=== PATIENT | female | born 1940 | race Caucasian/White ===

== ENCOUNTER → 2017-09-18 | Outpatient (CLI) | payer OTHER | END | disposition home or self-care (01) | LOC: RAH 08:10 | PROVIDERS: ATTEND Family Medicine | DX: Z12.31 Encounter for screening mammogram for malignant neoplasm of breast (principal) | CPT/HCPCS: 77067 ==

== ENCOUNTER → 2018-10-04 | Outpatient (CLI) | payer OTHER | END | disposition home or self-care (01) | LOC: RAH 14:08 | PROVIDERS: ATTEND Family Medicine | DX: Z12.31 Encounter for screening mammogram for malignant neoplasm of breast (principal) | CPT/HCPCS: 77067 ==

== ENCOUNTER 2020-02-17 11:07 | Inpatient (IN) | payer OTHER ==
[~2020-02-17] VITALS: Ht 157.5 cm; Wt 50.3 kg
[2020-02-17] MEDS ORDERED: SODIUM CHLORIDE 0.9% 1000ML 1,000 ML IV ONE (18:48)
[2020-02-17] MEDS ORDERED: ACETAMINOPHEN 325 MG TAB PO PRN (19:15)
[2020-02-17] MEDS ORDERED: HYDRALAZINE HCL 20 MG/ML VIAL IV PRN ×2 (19:15)
[2020-02-17 20:00] VITALS: BP 160/81; PULSE 91; RESP 20; TEMP 98.5
[2020-02-17] MEDS: SODIUM CHLORIDE 0.9% 1000ML 1,000 ML IV SCH (20:14)
--- NOTE | 2020-02-17 20:52 | NUR ---
CRITICAL TROPONIN RECEIVED CALL FROM LAB REGARDING TROPONIN OF 1.90, PLACED CALL TO ROSA HORVATH. PENDING CALL BACK. PATIENT CURRENTLY DENIES HAVING ANY CHEST PAIN OR DISCOMFORT.
[2020-02-17] MEDS ORDERED: METOPROLOL TARTRATE 25 MG TAB PO STA (20:59)
[2020-02-17] MEDS ORDERED: ASPIRIN 325MG EC TAB 325 MG TABLET.DR PO STA (20:59)
[2020-02-17] MEDS ORDERED: ASPIRIN 325 MG TABLET ONE (21:12)
[2020-02-17] MEDS ORDERED: METOPROLOL TARTRATE 25 MG TAB ONE (21:12)
[2020-02-17] MEDS: ENOXAPARIN SODIUM 60 MG/0.6 ML SQ SCH (21:16)
[2020-02-18] VITALS (7 sets, daily range): BP systolic 118–137; BP diastolic 63–79; PULSE 78–103; RESP 16–20; TEMP 97.7–98.7
--- NOTE | 2020-02-18 03:46 | NUR ---
ELEVATED TROPONIN RECEIVED CALL FROM LAB REGARDING TROPONIN OF 2.23, PLACED CALL TO ROSA HORVATH. PENDING CALL BACK. PATIENT CURRENTLY DENIES HAVING ANY CHEST PAIN OR DISCOMFORT.
--- NOTE | 2020-02-18 07:32 | NUR ---
Spouse called department, provided update on treatment plan for aspirin, metoprolol and anticoagulant, pending recommendation from Cardiology consult and Echocardiogram. Requested spouse to gather home medications and cell phone for patient. Spouse to deliver to Emergency department.
--- NOTE | 2020-02-18 08:10 | NUR ---
Notified Dr. Guallpa of consult for elevated troponins. Reviewed current troponin trends, EKG, medications prescribed and pending echocardiogram and asymptomatic order. No new orders received.
[2020-02-18] MEDS: ENOXAPARIN SODIUM 60 MG/0.6 ML SQ SCH ×2 (08:41→20:29)
[2020-02-18] MEDS: SODIUM CHLORIDE 0.9% 1000ML 1,000 ML IV SCH ×2 (08:42→22:12)
[2020-02-18] MEDS: METOPROLOL TARTRATE 25 MG TAB PO SCH ×2 (08:42→20:29)
[2020-02-18] MEDS: ASPIRIN 81MG TAB.CHEW PO SCH (08:42)
[2020-02-18] MEDS: FAMOTIDINE/PF 20 MG/2 ML VIAL IV SCH (09:00)
[2020-02-18] MEDS ORDERED: ENOXAPARIN SODIUM 40 MG/0.4 ML SYRINGE SQ SCH (09:00)
[2020-02-18] MEDS ORDERED: FAMOTIDINE 20MG TAB 20 MG TAB PO SCH (09:00)
[2020-02-18] MEDS ORDERED: LORAZEPAM 2 MG/ML 1 ML VIAL ONE (15:13)
[2020-02-18] MEDS ORDERED: LORAZEPAM 2 MG/ML 1 ML VIAL IVP PRN (15:15)
[2020-02-18] MEDS ORDERED: SERTRALINE HCL 50 MG TABLET PO SCH (15:15)
[2020-02-18] MEDS ORDERED: MAGNESIUM 2GM PREMIX 50ML 50 ML IV PRN (15:45)
[2020-02-18] MEDS ORDERED: POTASSIUM CHLORIDE 20 MEQ ERTAB PO PRN (15:45)
[2020-02-18] MEDS ORDERED: POTASSIUM CHLORIDE 10% ELIXIR 20 MEQ/15 ML UDCUP PO PRN (15:45)
--- NOTE | 2020-02-18 16:48 | NUR ---
Notified Dr. Beavers of consult for altered mental status, confusion.
--- NOTE | 2020-02-18 18:00 | NUR ---
Initial Chart review completed. Call placed to pt's room, however she remains w confusion. Call placed to spouse-no answer. Per nursing notes, pt lives w spouse and was indepenent prior to admission. Pt w no known DME or services. CM to continue to follow pt progress and wait for Md recommendations. Addendum: 02/18/20 at 1802 by MIC DESIR Amended: Links added.
[2020-02-18] MEDS: ATORVASTATIN CALCIUM 40 MG TABLET PO SCH (20:29)
[2020-02-18] MEDS: LISINOPRIL 10 MG TABLET PO SCH (20:30)
--- NOTE | 2020-02-18 20:30 | NUR ---
MEDS SHIFT ASSESSMENT DONE, PLEASE REFER TO CHART. PT IS VERY CONFUSED. TRIED TO RE-ORIENT PT ON PERSON, TIME AND SPACE. DUE MEDS ADMINISTERED, TOLERATED WELL. SITTER KEEPING CLOSE WATCH ON PT. WILL MONITOR CLOSELY. Addendum: 02/18/20 at 2240 by JAMESON ELISE RN RN Amended: Links added.
[2020-02-18] MEDS: GUAIFENESIN 400 MG PO SCH (20:35)
[2020-02-18] MEDS ORDERED: TRAZODONE HCL 50 MG TAB PO SCH (21:00)
[2020-02-18] MEDS: TEMAZEPAM 15 MG CAPSULE PO PRN (22:12)
--- NOTE | 2020-02-18 22:15 | NUR ---
SLEEP PT IS VERY RESTLESS AND UNABLE TO SETTLE DOWN FOR BED. PT WANTING TO GET OUT OF BED AND USING DIRTY CLOTHES HAVING VISUAL HALLUCINATIONS OF MONKEYS IN THE ROOM. TRIED TO RE-ORIENT PT AGAIN. RESTORIL PO GIVEN TO HELP PT REST. SITTER KEEPING CLOSE WATCH ON PT.
[2020-02-19] VITALS (14 sets, daily range): BP systolic 115–200; BP diastolic 58–111; PULSE 74–111; RESP 17–29; TEMP 97.9–99.7
--- NOTE | 2020-02-19 02:00 | NUR ---
ROUNDS PT IS RESTING WELL, FAIRLY ASLEEP. NO DISTRESS NOTED. KEPT NPO FOR PENDING LEXISCAN TODAY. KEPT COMFORTABLE IN BED. WILL MONITOR PT. SITTER BY PT'S DOOR.
--- NOTE | 2020-02-19 07:00 | NUR ---
REPORT REPORT GIVEN TO ALPHONSE STOCK. FOR MORE CARE AND MANAGEMENT. PENDING PROCEDURE AND POTASSIUM COVERAGE.
[2020-02-19] MEDS ORDERED: REGADENOSON 0.4 MG/5 ML PF SYG IVP SCH (08:15)
[2020-02-19] MEDS ORDERED: NON-FORMULARY MEDICATION 1 EACH (Sertraline HCl 100 MG) PO SCH (09:00)
[2020-02-19] MEDS: RISPERIDONE 0.5 MG TABLET PO SCH ×2 (12:15→20:11)
[2020-02-19] MEDS: FAMOTIDINE/PF 20 MG/2 ML VIAL IV SCH (13:04)
[2020-02-19] MEDS: METOPROLOL TARTRATE 25 MG TAB PO SCH ×2 (13:04→20:11)
[2020-02-19] MEDS: ENOXAPARIN SODIUM 60 MG/0.6 ML SQ SCH ×2 (13:05→20:12)
[2020-02-19] MEDS: ASPIRIN 81MG TAB.CHEW PO SCH (13:05)
[2020-02-19] MEDS: SODIUM CHLORIDE 0.9% 1000ML 1,000 ML IV SCH (13:06)
[2020-02-19] MEDS ORDERED: SODIUM CHLORIDE 0.9% 500ML 500 ML IV SCH (14:56)
[2020-02-19] MEDS: LISINOPRIL 10 MG TABLET PO SCH (20:11)
[2020-02-19] MEDS: ATORVASTATIN CALCIUM 40 MG TABLET PO SCH (20:11)
[2020-02-19] MEDS: GUAIFENESIN 400 MG PO SCH (20:12)
--- NOTE | 2020-02-19 20:15 | NUR ---
MEDS SHIFT ASSESSMENT DONE, PLEASE REFER TO CHART. DUE MEDS ADMINISTERED, TOLERATED WELL. KEPT RESTED AND COMFORTABLE. SITTER BY PT'S DOOR KEEPING CLOSE WATCH. WILL MONITOR PT. Addendum: 02/20/20 at 0048 by JAMESON ELISE RN RN Amended: Links added.
--- NOTE | 2020-02-19 21:00 | NUR ---
SOB SITTER CALLS AND INFORMS STEM PROCESSING MACHINE OPERATOR THAT PT IS HAVING SOB WITH O2 SAT=82% ON O2 2LPM VIA NC. STEM PROCESSING MACHINE OPERATOR WENT IN TO CHECK ON PT. PT IS HAVING DYSPNEA WITH USE OF ACCESSORY MUSCLES. INCREASED O2 AT 4LPM BUT O2 SAT STILL LOW AT 82-83%. V/A MONITORED WITH ELEVATED BM=667/90, HR=97 NSR, RR=30 PM, TEMPERATURE=97.9 DEGREES. POSIITONED PT IN BED WITH HOB ELEVATED. STOPPED IVF AT THIS TIME AND SALINE LOCKED PIV. CALLED RT SLOANE, TO COME AND CHECK PT. PAGED MARY LEE CENSUS ENUMERATOR FOR BENCHMARK, VIA ANSWERING SERVICE. AWAITING CALL BACK. RESOURCE NURSE MADE AWARE OF PT'S CONDITION.
--- NOTE | 2020-02-19 21:16 | NUR ---
FURNACE MECHANIC ROSA, FURNACE MECHANIC FOR BENCHMARK, CALLED BACK AND INFORMED OF PT'S CONDITION. NEW ORDERS GIVEN, PLEASE REFER TO CPOE. CALLED SLOANE,RT, AND INFORMED OF BIPAP ORDERS. RT, SLOANE, INFORMS OFFSET PRESS ASSISTANT THAT THERE IS NO BIPAP MACHINE AVAILABLE AT THIS TIME BUT WILL FIND ONE FOR PT. PLACED PT ON 100% NON-REBREATHER MASK. O2 SAT INCREASED TO 90% AT THIS TIME. PT STILL HAVING SOB. ASKED ALPHONSE BRAMBILA, TO INSERT ANOTHER IV. MEDICATED WITH 40MG OF LASIX X ONE DOSE. PT IS VERY CONFUSED AT THIS TIME. TRIED TO RE-ORIENT PT AND EXPLAIN TO HER WHAT IS BEING DONE TO HELP HER OUT. PT CALM DOWN AND SETTLED IN BED.
[2020-02-19] MEDS ORDERED: FUROSEMIDE 10 MG/ML 4ML VIAL ONE (21:29)
[2020-02-19] MEDS: FUROSEMIDE 10 MG/ML 4ML VIAL IV SCH (21:30)
--- NOTE | 2020-02-19 22:00 | NUR ---
BIPAP PT KEEP INSISTING ON GOING TO THE RESTROOM BUT IS STILL VERY SOB. SITTER SERVED BEDPAN AND SHE WAS ABLE TO SLEEP. PLACED DIAPER ON PT. RT, SLOANE IN NAD PLACED PT ON BIPAP, 07/15 AT 50% FIO2. REMINDED RT ON ORDER FOR ABG TO BE DONE IN 30 MINUTES. SITTER TO CLOSE WATCH PT SHE TRIES TO REMOVE HER BIPAP MASK.
[2020-02-19] MEDS: TEMAZEPAM 15 MG CAPSULE PO PRN (22:39)
--- NOTE | 2020-02-19 22:40 | NUR ---
RESULTS SLOANE,RT, WAS IN AND PAUL ROXANNE, RESULTS IN. RT STATED THAT PT IS 99% ON BIPAP SO IT WAS DROPPED TO 40% FIO2. V/S MONITORED, STABLE WITH GX=304/71, HR=92, RR=24, TEMPERATURE=98.6. PAGED MARY LEE BARGEMAN FOR BENCHMARK, VIA ANSWERING SERVICE TO REPORT RESULTS.
--- NOTE | 2020-02-19 23:00 | NUR ---
CALL BACK MARY LEE, CALLED BACK AND REPORTED ABG RESULTS. NEW ORDERS GIVEN, PLEASE REFER TO CPOE.
--- NOTE | 2020-02-19 23:56 | NUR ---
PAGED DR FARRAR VIA ANSWERING SERVICE. CALLED BACK AND INFORMED OF PT'S CONDITION. NEW ORDERS GIVEN, PLEASE REFER TO CPOE. RESOURCE NURSE INFORMED OF DR FARRAR'S ORDERS. CUSTOMS ENTRY WRITER WAS INFORMED THAT PT WILL NEED TO BE TRANSFERRED TO COVID UNIT. COVID TEST DONE, SPECIMEN SENT TO LAB. KHAN CATHETER INSERTED THEN TO BSD. SITTER GAVE PT A BED BATH, TOLERATED ACTIVITY WELL. POSITIONED COMFORTABLY IN BED WITH HOB ELEVATED. PT AWAITING FOR BED AT THE COVID UNIT.
[2020-02-20] VITALS (14 sets, daily range): BP systolic 117–149; BP diastolic 63–86; PULSE 69–94; RESP 16–24; TEMP 97.9–98.6
--- NOTE | 2020-02-20 01:00 | NUR ---
ROOM PT ALREADY HAVE A ROOM ASSIGNED IN THE COVID FLOOR JUST NEEDED TO BE CLEANED.
--- NOTE | 2020-02-20 02:00 | NUR ---
MITTENS PT STILL TRYING TO REMOVE MASK AND TRYING TO PULL ON F/C. MITTENS PLACED TO BOTH HANDS. SITTER KEEPING CLOSE WATCH.
--- NOTE | 2020-02-20 03:00 | NUR ---
REPORT REPORT CALLED TO ALPHONSE LÓPEZ. WILL TRANSFER TO ROOM 222.
--- NOTE | 2020-02-20 03:40 | NUR ---
TRANSFER PT TRANSFERRED TO ROOM 222 WITH PCP AND RT TRANSPORTING.
--- NOTE | 2020-02-20 03:45 | NUR ---
Received patient via bed,on Bipap with bilateral wrist mittens on.Patient is awake and confused.Initial assessment was done .Kilpatrick catheter patent and draining to the flow of gravity.Patient is on 1 is to 1 observation.
[2020-02-20] MEDS: FUROSEMIDE 10 MG/ML 4ML VIAL IV SCH ×2 (04:56→22:36)
--- NOTE | 2020-02-20 06:25 | NUR ---
Placed several calls to patient's to update him with her current change of condition and transfer however the number is a non working number and the other number which is kept on ringing and will immediately prompt to voice mailbox but unable to leave a message because it is already full.Charge nurse made aware.
[2020-02-20] MEDS: ENOXAPARIN SODIUM 60 MG/0.6 ML SQ SCH (09:00)
[2020-02-20] MEDS ORDERED: LORAZEPAM 2 MG/ML 1 ML VIAL IVP PRN (09:45)
[2020-02-20] MEDS: FAMOTIDINE/PF 20 MG/2 ML VIAL IV SCH (10:23)
[2020-02-20] MEDS: ASPIRIN 81MG TAB.CHEW PO SCH (10:25)
[2020-02-20] MEDS: RISPERIDONE 0.5 MG TABLET PO SCH ×2 (10:25→21:00)
[2020-02-20] MEDS: METOPROLOL TARTRATE 25 MG TAB PO SCH ×2 (10:25→21:00)
--- NOTE | 2020-02-20 10:26 | NUR ---
Possible heart cath. Held lovenox.
--- NOTE | 2020-02-20 10:50 | NUR ---
Pt sating 93% on RA. Called MARY Roberson gave order to place pt on 2lmp NC. Respiratory therapist here for ABG will place on NC when completed.
--- NOTE | 2020-02-20 15:23 | NUR ---
Call from Dr. Grossman MRI results show small vessel stoke. Ordered for a bilateral carotid doppler for 02/20. Dr. Guallpa called, reported the small vessel stroke. Will hold on heart cath until the brain heals. Ordered to decrease lovenox to 30mg subq daily. Called and updated of results and plan of care. Pt. A&O to person. Lying in bed watching TV. Sitter at window. Will continue to monitor.
[2020-02-20] MEDS ORDERED: ENOXAPARIN SODIUM 30 MG/0.3 ML SQ SCH (15:30)
[2020-02-20] MEDS: GUAIFENESIN 400 MG PO SCH (21:00)
[2020-02-20] MEDS: LISINOPRIL 10 MG TABLET PO SCH (21:00)
[2020-02-20] MEDS: ATORVASTATIN CALCIUM 40 MG TABLET PO SCH (21:00)
[2020-02-21] VITALS (9 sets, daily range): BP systolic 133–154; BP diastolic 56–87; PULSE 72–134; RESP 14–22; TEMP 98–98.9
[2020-02-21] MEDS: FUROSEMIDE 10 MG/ML 4ML VIAL IV SCH ×2 (04:55→21:30)
[2020-02-21] MEDS ORDERED: ENOXAPARIN SODIUM 60 MG/0.6 ML SQ SCH (09:00)
[2020-02-21] MEDS: RISPERIDONE 0.5 MG TABLET PO SCH ×2 (09:40→21:56)
[2020-02-21] MEDS: ASPIRIN 81MG TAB.CHEW PO SCH (09:42)
[2020-02-21] MEDS: METOPROLOL TARTRATE 25 MG TAB PO SCH ×2 (09:42→21:56)
[2020-02-21] MEDS: ENOXAPARIN SODIUM 30 MG/0.3 ML SQ SCH (09:42)
[2020-02-21] MEDS: FAMOTIDINE/PF 20 MG/2 ML VIAL IV SCH (09:42)
[2020-02-21] MEDS: ONDANSETRON HCL 4 MG/2 ML VIAL IVP PRN ×2 (12:08→22:21)
--- NOTE | 2020-02-21 13:56 | NUR ---
Pt vomit x2 gave prn zofran. Pt was walked by RT for home oxygen evaluation and reported that pt was weak upon ambulation. Called report to [facility] pt transporting to room 1D. Provided update to MARY Greene on villarreal removal and post void pending, nausea, and weakness. Pt to remain hospitalized x1 more night for monitoring. Called pt updated that pt will be moved and negative covid test. Pt resting in bed. Sitter at window. No s/s of distress noted. Will continue to monitor.
--- NOTE | 2020-02-21 14:19 | NUR ---
Pt transported via wheelchair by charge to 1D. All belongings including cell phone and teamsite developer transported with the patient. No s/s of distress noted upon exit from unit.
[2020-02-21] MEDS: GUAIFENESIN 400 MG PO SCH (21:00)
[2020-02-21] MEDS: ATORVASTATIN CALCIUM 40 MG TABLET PO SCH (21:56)
[2020-02-21] MEDS: LISINOPRIL 10 MG TABLET PO SCH (21:56)
[2020-02-21] MEDS: TEMAZEPAM 15 MG CAPSULE PO PRN (22:18)
[2020-02-22 03:40] VITALS: BP 108/48; PULSE 70; RESP 15; TEMP 98.1
[2020-02-22] MEDS: FUROSEMIDE 10 MG/ML 4ML VIAL IV SCH (04:00)
[2020-02-22] MEDS: LIDOCAINE HCL-MPF 1% 2ML VIAL IV PRN ×2 (04:32→08:41)
[2020-02-22] MEDS: POTASSIUM CHLORIDE 20MEQ/100ML 100 ML IV PRN ×2 (04:33→08:42)
[2020-02-22 07:00] VITALS: BP 150/69; PULSE 90; RESP 22; TEMP 97.4
--- NOTE | 2020-02-22 07:33 | NUR ---
Patient still in ER department, awaiting for patient to be transferred to medical floor in order to be able to initiate skilled Physical Therapy Evaluation.Ordered by YULIET Carlos 02/21/2020 Addendum: 02/22/20 at 0735 by ESTHER BERNSTEIN, PT PT Amended: Links added.
--- NOTE | 2020-02-22 07:52 | NUR ---
Notes dated 02/22/2020 at 7:33 was entered wrong by care provider.Physical Therapist will initiate skilled PT Evaluation today.Patient was transferred to [facility] Addendum: 02/22/20 at 0755 by ESTHER BERNSTEIN, PT PT Amended: Links added.
[2020-02-22] MEDS: METOPROLOL TARTRATE 25 MG TAB PO SCH (08:24)
[2020-02-22] MEDS: RISPERIDONE 0.5 MG TABLET PO SCH (08:24)
[2020-02-22] MEDS: FAMOTIDINE/PF 20 MG/2 ML VIAL IV SCH (08:24)
[2020-02-22] MEDS: ASPIRIN 81MG TAB.CHEW PO SCH (08:24)
[2020-02-22] MEDS: ENOXAPARIN SODIUM 30 MG/0.3 ML SQ SCH (08:25)
--- NOTE | 2020-02-22 08:30 | NUR ---
ASSESSMENT COMPLETED AND DOCUMENTED. PATIENT APPEARS COMFORTABLE. DENIES PAIN OR SHORTNESS OF BREATH. REMOVED O2 AT THIS TIME. PENDING DISMISSAL TODAY. K+ 3.O, CURRENTLY ON HYPOKALEMIA IV PROTOCOL. WILL CONTINUE TO MONITOR.
--- NOTE | 2020-02-22 09:00 | NUR ---
FUR PULLER HANS STANFORD IN TO SEE PATIENT, UPDATE GIVEN.
[2020-02-22] MEDS: ONDANSETRON HCL 4 MG/2 ML VIAL IVP PRN (11:32)
--- NOTE | 2020-02-22 11:34 | NUR ---
ATE SOME OF SOUP FOR LUNCH...HAD EMESIS. MEDICATED WITH ZOFRAN 4MG IV. GIVEN ICE CHIPS.
[2020-02-22 12:13] VITALS: BP 144/65; PULSE 71; RESP 16; TEMP 97.9
--- NOTE | 2020-02-22 12:30 | NUR ---
NO FURTHER NAUSEA.
--- NOTE | 2020-02-22 13:32 | NUR ---
RE CHECK POTASSIUM LEVEL 4.0. NOTIFIED TRUST MAIL CLERK HANS PRECIADO FOR POSSIBLE DISCHARGE ORDERS.
--- NOTE | 2020-02-22 15:00 | NUR ---
GIVEN DISCHARGE INSTRUCTIONS TO SPOUSE MIRELLA OVER THE PHONE. VERBALIZED UNDERSTANDING. REMOVED TECHNOLOGY TRAINER. REMOVED SALINE LOCK FROM LEFT FOREARM, IV SITE WITHOUT REDNESS NOTED. TAKEN TO PRIVATE ALONG WITH PERSONAL BELONGINGS VIA WHEELCHAIR BY Han RUANO RN.
== END 2020-02-22 15:00 | disposition home or self-care (01) | DRG 64 ==
LOC: EDH 11:07 → OBSVTOIN 18:25 → EDHIP 18:25 → 3AH 19:36 → 3BH 23:40 → 2DH 02-20 03:19 → DAHIP 02-21 15:26
PROVIDERS: ADMIT Internal Medicine Critical Care Medicine; ATTEND Internal Medicine Critical Care Medicine
DX: I63.9 Cerebral infarction, unspecified (principal); I50.31 Acute diastolic (congestive) heart failure; Z20.828 Contact with and (suspected) exposure to other viral communicable diseases; R79.89 Other specified abnormal findings of blood chemistry; R09.02 Hypoxemia; I25.10 Atherosclerotic heart disease of native coronary artery without angina pectoris; R06.03 Acute respiratory distress; E78.00 Pure hypercholesterolemia, unspecified; E78.5 Hyperlipidemia, unspecified; F03.90 Unspecified dementia, unspecified severity, without behavioral disturbance, psychotic disturbance, mood disturbance, and anxiety; F32.9 Major depressive disorder, single episode, unspecified; R45.1 Restlessness and agitation; Z79.82 Long term (current) use of aspirin; Z79.899 Other long term (current) drug therapy; Z82.49 Family history of ischemic heart disease and other diseases of the circulatory system; Z86.19 Personal history of other infectious and parasitic diseases; Z90.710 Acquired absence of both cervix and uterus; I11.0 Hypertensive heart disease with heart failure

== ENCOUNTER 2020-03-31 14:15 | Emergency (ER) | payer OTHER ==
[~2020-03-31 14:15] MED LIST: ATOR40TA69 PO; GUAI400T94 PO; LISI10TA7 PO; SERT100T12 PO; TRAZ-185 PO
[2020-03-31] MEDS ORDERED: ONDANSETRON HCL 4 MG/2 ML VIAL ONE (14:49)
[2020-03-31 15:13] LABS: BASOPHILS % (AUTO) 0.9 % (0.0-5.0); HEMATOCRIT 37.6 % (36-48); MEAN CORPUSCULAR VOLUME 87.9 fL (79-99); NEUTROPHILS % (AUTO) 63.7 % (40.0-77.0); PLATELET COUNT (AUTO) 232 K/uL (130-400); RED BLOOD CELL COUNT(AUTO) 4.28 MIL/uL (4.00-5.50); RED CELL DISTRIBUTION WIDTH 14.6 % (11.0-15.5); WHITE BLOOD COUNT (AUTO) 7.6 K/uL (4.8-10.8)
[2020-03-31 15:24] LABS: APPEARANCE,URINE CLEAR (CLEAR); BILIRUBIN,URINE SMALL (NEGATIVE); COLOR,URINE YELLOW (YELLOW); GLUCOSE, URINE (UA) NEGATIVE (NEGATIVE); KETONES,URINE NEGATIVE (NEGATIVE); LEUKOCYTE ESTERASE ,URINE TRACE (NEGATIVE); NITRATE,URINE NEGATIVE (NEGATIVE); OCCULT BLOOD,URINE TRACE-INTACT (NEGATIVE); PH,URINE 5.5 (5.0-8.0); PROTEIN,URINE >=300 mg/dL (NEGATIVE); UROBILINOGEN,URINE 0.2 mg/dL (0.2-1.0)
[2020-03-31 15:25] LABS: POTASSIUM 3.7 mmol/L (3.5-5.1)
[2020-03-31 15:30] LABS: ALBUMIN 3.9 g/dL (3.5-5.0); BACTERIA,URINE Few /HPF (None Seen); BILIRUBIN,TOTAL 0.4 mg/dL (0.2-1.0); MUCUS,URINE Few LPF (None Seen); SQUAMOUS EPITHELIAL CELL,UR Moderate /HPF (0-2); TOTAL PROTEIN, SERUM 7.3 g/dL (6.0-8.3); URIC ACID CRYSTALS,URINE Moderate /LPF (None Seen)
[2020-03-31] MEDS ORDERED: SODIUM CHLORIDE 0.9% 500ML 500 ML IV ONE (15:42)
== END 2020-03-31 17:41 | disposition home or self-care (01) ==
LOC: EDH 14:15
DX: A08.39 Other viral enteritis (principal); E86.0 Dehydration; R51 Headache; Z20.828 Contact with and (suspected) exposure to other viral communicable diseases; E78.5 Hyperlipidemia, unspecified; I10 Essential (primary) hypertension; M19.90 Unspecified osteoarthritis, unspecified site; Z90.49 Acquired absence of other specified parts of digestive tract; Z90.710 Acquired absence of both cervix and uterus
CPT/HCPCS: 36415; 80053; 81001; 83690; 84484; 85025; 87077; 87088; 87186; 87426; 93005; 96361; 96374; 99284; J2405; J7040; U0003

== ENCOUNTER 2020-06-13 08:58 | Emergency (ER) | payer OTHER ==
[2020-06-13] MEDS ORDERED: SODIUM CHLORIDE 0.9% 1000ML 1,000 ML IV ONE (08:59)
[2020-06-13] MEDS ORDERED: ONDANSETRON HCL 4 MG/2 ML VIAL ONE (09:26)
[2020-06-13] MEDS ORDERED: KETOROLAC TROMETHAMINE 15MG/ML ONE (09:26)
[2020-06-13 09:30] LABS: BASOPHILS % (AUTO) 0.7 % (0.0-5.0); EOSINOPHILS % (AUTO) 1.9 % (0.0-8.0); HEMATOCRIT 40.6 % (36-48); LYMPHOCYTES % (AUTO) 22.9 % (21.0-51.0); MEAN CORPUSCULAR HEMOGLOBIN 29.3 pg (27.0-33.0); MEAN CORPUSCULAR HGB CONC 33.3 g/dL (32.0-36.0); MEAN CORPUSCULAR VOLUME 88.3 fL (79-99); MONOCYTES % (AUTO) 5.6 % (3.0-13.0); NEUTROPHILS % (AUTO) 68.7 % (40.0-77.0); PLATELET COUNT (AUTO) 174 K/uL (130-400); WHITE BLOOD COUNT (AUTO) 8.5 K/uL (4.8-10.8)
[2020-06-13 09:31] LABS: APPEARANCE,URINE Clear (CLEAR); BILIRUBIN,URINE Small (NEGATIVE); COLOR,URINE Dark Yellow (YELLOW); GLUCOSE, URINE (UA) Negative (NEGATIVE); KETONES,URINE Trace mg/dL (NEGATIVE); LEUKOCYTE ESTERASE ,URINE Trace (NEGATIVE); NITRATE,URINE Negative (NEGATIVE); OCCULT BLOOD,URINE Negative (NEGATIVE); PROTEIN,URINE Trace mg/dL (NEGATIVE)
[2020-06-13 09:38] LABS: POTASSIUM 3.7 mmol/L (3.5-5.1)
[2020-06-13 09:39] LABS: BACTERIA,URINE Few /HPF (None Seen); CALCIUM OXALATE CRYSTALS,UR Moderate /LPF (None Seen); RBC,URINE None Seen /HPF (0-1); WBC,URINE 0-1 /HPF (0-1)
[2020-06-13 09:43] LABS: BILIRUBIN,TOTAL 0.5 mg/dL (0.2-1.0); TOTAL PROTEIN, SERUM 7.1 g/dL (6.0-8.3)
== END 2020-06-13 11:15 | disposition home or self-care (01) ==
LOC: EDH 08:58
DX: R11.2 Nausea with vomiting, unspecified (principal); R51.9 Headache, unspecified; R53.1 Weakness; E78.5 Hyperlipidemia, unspecified; F32.9 Major depressive disorder, single episode, unspecified; I12.9 Hypertensive chronic kidney disease with stage 1 through stage 4 chronic kidney disease, or unspecified chronic kidney disease; N18.9 Chronic kidney disease, unspecified; M81.0 Age-related osteoporosis without current pathological fracture; M19.90 Unspecified osteoarthritis, unspecified site; F03.90 Unspecified dementia, unspecified severity, without behavioral disturbance, psychotic disturbance, mood disturbance, and anxiety
CPT/HCPCS: 36415; 80053; 81001; 83690; 85025; 93005; 96361; 96374; 96375; 99284; J1885; J2405; J7030

== ENCOUNTER 2020-07-13 09:46 | Emergency (ER) | payer OTHER ==
[2020-07-13 10:18] LABS: BASOPHILS % (AUTO) 0.8 % (0.0-5.0); EOSINOPHILS % (AUTO) 4.6 % (0.0-8.0); HEMATOCRIT 37.9 % (36-48); LYMPHOCYTES % (AUTO) 33.6 % (21.0-51.0); MEAN CORPUSCULAR HEMOGLOBIN 28.5 pg (27.0-33.0); MEAN CORPUSCULAR HGB CONC 32.5 g/dL (32.0-36.0); MEAN CORPUSCULAR VOLUME 87.9 fL (79-99); MONOCYTES % (AUTO) 7.6 % (3.0-13.0); NEUTROPHILS % (AUTO) 53.2 % (40.0-77.0); PLATELET COUNT (AUTO) 204 K/uL (130-400); RED BLOOD CELL COUNT(AUTO) 4.31 MIL/uL (4.00-5.50); RED CELL DISTRIBUTION WIDTH 13.8 % (11.0-15.5); WHITE BLOOD COUNT (AUTO) 6.3 K/uL (4.8-10.8)
[2020-07-13 10:25] LABS: CREATININE 1.1 mg/dL (0.5-1.5); POTASSIUM 3.9 mmol/L (3.5-5.1)
[2020-07-13 10:29] LABS: ALBUMIN 3.5 g/dL (3.5-5.0); BILIRUBIN,TOTAL 0.4 mg/dL (0.2-1.0); TOTAL PROTEIN, SERUM 6.5 g/dL (6.0-8.3)
[2020-07-13 10:31] LABS: APPEARANCE,URINE Clear (CLEAR); BILIRUBIN,URINE Negative (NEGATIVE); COLOR,URINE Yellow (YELLOW); GLUCOSE, URINE (UA) Negative (NEGATIVE); KETONES,URINE Negative (NEGATIVE); LEUKOCYTE ESTERASE ,URINE Trace (NEGATIVE); NITRATE,URINE Negative (NEGATIVE); OCCULT BLOOD,URINE Negative (NEGATIVE); PROTEIN,URINE Negative (NEGATIVE); UROBILINOGEN,URINE 0.2 mg/dL (0.2-1.0)
[2020-07-13 10:31] LABS: INR 1.14 (0.85-1.15); PARTIAL THROMBOPLASTIN TIME 34.1 SEC (26.3-35.5); PROTHROMBIN TIME 12.3 SEC (9.6-11.6)
[2020-07-13 10:38] LABS: AMPHET/METH SCREEN,URINE NEGATIVE (NEGATIVE); BARBITURATE SCREEN, URINE NEGATIVE (NEGATIVE); BENZODIAZEPINES SCREEN,URINE NEGATIVE (NEGATIVE); CANNABINOID SCREEN,URINE NEGATIVE (NEGATIVE); COCAINE SCREEN,URINE NEGATIVE (NEGATIVE); OPIATE SCREEN,URINE NEGATIVE (NEGATIVE); PHENCYCLIDINE SCREEN,URINE NEGATIVE (NEGATIVE)
[2020-07-13 10:46] LABS: RBC,URINE 0-1 /HPF (0-1); WBC,URINE 0-1 /HPF (0-1)
[2020-07-13 10:47] LABS: BACTERIA,URINE Few /HPF (None Seen); SQUAMOUS EPITHELIAL CELL,UR 0-2 /HPF (0-2)
[2020-07-13] MEDS ORDERED: LISINOPRIL 5 MG TABLET ONE (12:08)
== END 2020-07-13 12:35 | disposition home or self-care (01) ==
LOC: EDH 09:46
DX: R55 Syncope and collapse (principal); F03.90 Unspecified dementia, unspecified severity, without behavioral disturbance, psychotic disturbance, mood disturbance, and anxiety; I10 Essential (primary) hypertension; E78.5 Hyperlipidemia, unspecified; F32.9 Major depressive disorder, single episode, unspecified
CPT/HCPCS: 36415; 70450; 71045; 80053; 80305; 81001; 82550; 82948; 83721; 84484; 85025; 85610; 85730; 93005

== ENCOUNTER 2020-10-31 01:47 | Emergency (ER) | payer OTHER ==
[~2020-10-31 01:47] MED LIST changes: +LISI10TA24 PO; -LISI10TA7 PO; +SERT-440 PO; -SERT100T12 PO
[2020-10-31] MEDS ORDERED: HYDROCODONE/ACETAMINOPHEN 5/325 MG TAB ONE (03:10)
== END 2020-10-31 03:41 | disposition home or self-care (01) ==
LOC: EDH 01:47
DX: S50.12XA Contusion of left forearm, initial encounter (principal); I12.9 Hypertensive chronic kidney disease with stage 1 through stage 4 chronic kidney disease, or unspecified chronic kidney disease; N18.9 Chronic kidney disease, unspecified; E78.5 Hyperlipidemia, unspecified; M19.90 Unspecified osteoarthritis, unspecified site; M81.0 Age-related osteoporosis without current pathological fracture; Z86.73 Personal history of transient ischemic attack (TIA), and cerebral infarction without residual deficits; Z90.710 Acquired absence of both cervix and uterus; V18.4XXA Pedal cycle driver injured in noncollision transport accident in traffic accident, initial encounter; Y93.89 Activity, other specified; Y92.89 Other specified places as the place of occurrence of the external cause; Y99.8 Other external cause status
CPT/HCPCS: 73060; 73090

== ENCOUNTER → 2020-11-02 | Outpatient (CLI) | payer OTHER | END | disposition home or self-care (01) | LOC: RAH 09:28 | PROVIDERS: ATTEND Family Medicine | DX: Z12.31 Encounter for screening mammogram for malignant neoplasm of breast (principal) | CPT/HCPCS: 77067 ==

== ENCOUNTER 2020-11-29 16:21 | Observation (INO) | payer OTHER ==
[~2020-11-29] VITALS: Ht 157.5 cm; Wt 60.2 kg
[2020-11-29 17:03] LABS: BASOPHILS % (AUTO) 0.4 % (0.0-5.0); HEMATOCRIT 38.4 % (36-48); LYMPHOCYTES % (AUTO) 14.7 % (21.0-51.0); MEAN CORPUSCULAR HEMOGLOBIN 29.9 pg (27.0-33.0); MEAN CORPUSCULAR HGB CONC 34.6 g/dL (32.0-36.0); MEAN CORPUSCULAR VOLUME 86.3 fL (79-99); MONOCYTES % (AUTO) 5.2 % (3.0-13.0); NEUTROPHILS % (AUTO) 79.3 % (40.0-77.0); PLATELET COUNT (AUTO) 234 K/uL (130-400); RED BLOOD CELL COUNT(AUTO) 4.45 MIL/uL (4.00-5.50); RED CELL DISTRIBUTION WIDTH 14.1 % (11.0-15.5); WHITE BLOOD COUNT (AUTO) 8.3 K/uL (4.8-10.8)
[2020-11-29 17:15] LABS: CREATININE 1.1 mg/dL (0.5-1.5); POTASSIUM 4.5 mmol/L (3.5-5.1)
[2020-11-29 17:26] LABS: ALBUMIN 3.7 g/dL (3.5-5.0); BILIRUBIN,TOTAL 0.3 mg/dL (0.2-1.0); TOTAL PROTEIN, SERUM 7.2 g/dL (6.0-8.3)
[2020-11-29 17:53] LABS: INR 0.94 (0.85-1.15); PROTHROMBIN TIME 10.3 SEC (9.6-11.6)
[2020-11-29 17:54] LABS: PARTIAL THROMBOPLASTIN TIME 23.1 SEC (26.3-35.5)
[2020-11-29 18:00] LABS: CREATINE KINASE, TOTAL 91 U/L (21-232); LIPASE 73 U/L (114-286)
[2020-11-29 20:32] LABS: APPEARANCE,URINE Clear (CLEAR); BILIRUBIN,URINE Negative (NEGATIVE); COLOR,URINE Yellow (YELLOW); GLUCOSE, URINE (UA) Negative (NEGATIVE); KETONES,URINE Negative (NEGATIVE); LEUKOCYTE ESTERASE ,URINE Small (NEGATIVE); NITRATE,URINE Negative (NEGATIVE); OCCULT BLOOD,URINE Negative (NEGATIVE); PH,URINE 6.5 (5.0-8.0); PROTEIN,URINE POS 1+ mg/dL (NEGATIVE)
[2020-11-29 20:47] LABS: BACTERIA,URINE Few /HPF (None Seen); MUCUS,URINE Moderate LPF (None Seen); SQUAMOUS EPITHELIAL CELL,UR Few /HPF (0-2)
[2020-11-29] MEDS ORDERED: ACETAMINOPHEN 325 MG TAB PO PRN ×2 (21:15)
[2020-11-29] MEDS ORDERED: ONDANSETRON HCL 4 MG/2 ML VIAL IV PRN (21:15)
[2020-11-29] MEDS ORDERED: NITROGLYCERIN 0.4 MG SL TAB SL PRN (21:15)
[2020-11-29] MEDS ORDERED: DEXTROSE 50%-WATER 50 ML DISP.SYRIN IV PRN (21:45)
[2020-11-29] MEDS ORDERED: GLUCAGON 1MG KIT 1 MG ML IM PRN (21:45)
[2020-11-29] MEDS ORDERED: ENOXAPARIN SODIUM 40 MG/0.4 ML SYRINGE SQ ONE (22:05)
[2020-11-29] MEDS ORDERED: FAMOTIDINE/PF 20 MG/2 ML VIAL IV ONE (22:06)
[2020-11-29] MEDS ORDERED: ASPIRIN 81MG TAB.CHEW PO ONE (22:15)
[2020-11-30 01:25] VITALS: BP 170/83
[2020-11-30] MEDS ORDERED: LABETALOL 20 MG/4 ML DISP.SYRIN IV PRN (02:00)
[2020-11-30] MEDS: ATORVASTATIN CALCIUM 20 MG TABLET PO SCH ×2 (02:20→09:39)
[2020-11-30 03:00] VITALS: BP 154/63
[2020-11-30] MEDS ORDERED: INSULIN HUMULIN R 100 UNIT/ML 3ML SQ SCH (07:30)
[2020-11-30 08:46] VITALS: BP 149/67
[2020-11-30] MEDS ORDERED: ENOXAPARIN SODIUM 40 MG/0.4 ML SYRINGE SQ SCH (09:00)
[2020-11-30] MEDS ORDERED: FAMOTIDINE 20MG TAB 20 MG TAB PO SCH (09:00)
[2020-11-30] MEDS ORDERED: SULFAMETHOX-TMP DS 800/160 TAB PO SCH (09:00)
[2020-11-30] MEDS ORDERED: ASPIRIN 81MG TAB.CHEW PO SCH (09:00)
[2020-11-30 12:11] VITALS: BP 167/73
== END 2020-11-30 16:00 | disposition home or self-care (01) ==
LOC: EDH 16:21 → EDHIP 21:10 → 3DH 11-30 01:27
PROVIDERS: ADMIT Internal Medicine Critical Care Medicine; ATTEND Internal Medicine Critical Care Medicine
DX: R41.82 Altered mental status, unspecified (principal); Z20.822 Contact with and (suspected) exposure to COVID-19; N39.0 Urinary tract infection, site not specified; I12.9 Hypertensive chronic kidney disease with stage 1 through stage 4 chronic kidney disease, or unspecified chronic kidney disease; N18.9 Chronic kidney disease, unspecified; F03.90 Unspecified dementia, unspecified severity, without behavioral disturbance, psychotic disturbance, mood disturbance, and anxiety; F32.9 Major depressive disorder, single episode, unspecified; M81.0 Age-related osteoporosis without current pathological fracture; E78.00 Pure hypercholesterolemia, unspecified; E78.5 Hyperlipidemia, unspecified; M19.90 Unspecified osteoarthritis, unspecified site; R55 Syncope and collapse; F17.200 Nicotine dependence, unspecified, uncomplicated; Z86.73 Personal history of transient ischemic attack (TIA), and cerebral infarction without residual deficits; Z90.710 Acquired absence of both cervix and uterus; Z90.49 Acquired absence of other specified parts of digestive tract; Z79.899 Other long term (current) drug therapy
CPT/HCPCS: 36415; 70450; 70551; 71045; 72125; 80053; 81001; 82140; 82550; 82948; 83690; 83880; 84484; 85025; 85610; 85730; 87040 ×2; 87088; 87426; 93005; 93306; 93880; 96372; 96374; 99285; G0378 ×17; J1650 ×2; J3490; U0003; 93356

== ENCOUNTER 2021-01-05 10:42 | Emergency (ER) | payer OTHER ==
[~2021-01-05 10:42] MED LIST changes: -GUAI400T94 PO
[2021-01-05 11:17] LABS: BASOPHILS % (AUTO) 0.9 % (0.0-5.0); EOSINOPHILS % (AUTO) 2.6 % (0.0-8.0); HEMATOCRIT 38.1 % (36-48); LYMPHOCYTES % (AUTO) 25.8 % (21.0-51.0); MEAN CORPUSCULAR HEMOGLOBIN 28.7 pg (27.0-33.0); MEAN CORPUSCULAR HGB CONC 32.8 g/dL (32.0-36.0); MEAN CORPUSCULAR VOLUME 87.6 fL (79-99); MONOCYTES % (AUTO) 6.5 % (3.0-13.0); NEUTROPHILS % (AUTO) 63.8 % (40.0-77.0); PLATELET COUNT (AUTO) 219 K/uL (130-400); RED BLOOD CELL COUNT(AUTO) 4.35 MIL/uL (4.00-5.50); RED CELL DISTRIBUTION WIDTH 14.1 % (11.0-15.5); WHITE BLOOD COUNT (AUTO) 6.9 K/uL (4.8-10.8)
[2021-01-05 11:25] LABS: CREATININE 1.1 mg/dL (0.5-1.5); POTASSIUM 3.5 mmol/L (3.5-5.1)
[2021-01-05 11:30] LABS: ALBUMIN 3.4 g/dL (3.5-5.0); BILIRUBIN,TOTAL 0.3 mg/dL (0.2-1.0); TOTAL PROTEIN, SERUM 6.6 g/dL (6.0-8.3)
[2021-01-05] MEDS ORDERED: LACTULOSE 20 GM/30 ML UDCUP ONE (13:53)
[2021-01-05] MEDS ORDERED: MAGNESIUM CITRATE 296 ML SOLUTION ONE (13:53)
[2021-01-05] MEDS ORDERED: NIFEDIPINE 10 MG CAP ONE (16:21)
[2021-01-05] MEDS ORDERED: CLONIDINE HCL 0.1 MG TABLET ONE (17:02)
== END 2021-01-05 17:32 | disposition home or self-care (01) ==
LOC: EDH 10:42
DX: K59.00 Constipation, unspecified (principal); F03.90 Unspecified dementia, unspecified severity, without behavioral disturbance, psychotic disturbance, mood disturbance, and anxiety; I12.9 Hypertensive chronic kidney disease with stage 1 through stage 4 chronic kidney disease, or unspecified chronic kidney disease; E11.22 Type 2 diabetes mellitus with diabetic chronic kidney disease; N18.9 Chronic kidney disease, unspecified; E78.5 Hyperlipidemia, unspecified; F32.9 Major depressive disorder, single episode, unspecified; M19.90 Unspecified osteoarthritis, unspecified site; M81.0 Age-related osteoporosis without current pathological fracture
CPT/HCPCS: 36415; 74018; 80053; 85025

== ENCOUNTER 2021-01-08 10:54 | Emergency (ER) | payer OTHER ==
[~2021-01-08] VITALS: Ht 152.4 cm; Wt 47.6 kg
[2021-01-08 11:42] VITALS: BP 176/59
== END 2021-01-08 15:42 | disposition left against medical advice (07) ==
LOC: EDH 10:54
DX: R42 Dizziness and giddiness (principal); Z53.21 Procedure and treatment not carried out due to patient leaving prior to being seen by health care provider

== ENCOUNTER 2021-03-09 13:32 | Emergency (ER) | payer OTHER ==
[~2021-03-09] VITALS: Ht 157.5 cm; Wt 49.9 kg
[2021-03-09 13:33] VITALS: BP 145/75
[2021-03-09 15:37] LABS: BASOPHILS % (AUTO) 0.9 % (0.0-5.0); EOSINOPHILS % (AUTO) 3.3 % (0.0-8.0); MEAN CORPUSCULAR HGB CONC 32.1 g/dL (32.0-36.0); MEAN CORPUSCULAR VOLUME 90.5 fL (79-99); MONOCYTES % (AUTO) 7.6 % (3.0-13.0); NEUTROPHILS % (AUTO) 63.9 % (40.0-77.0); PLATELET COUNT (AUTO) 221 K/uL (130-400); RED CELL DISTRIBUTION WIDTH 13.5 % (11.0-15.5); WHITE BLOOD COUNT (AUTO) 7.9 K/uL (4.8-10.8)
[2021-03-09 15:48] LABS: INR 0.95 (0.85-1.15); PROTHROMBIN TIME 10.4 SEC (9.6-11.6)
[2021-03-09 15:50] LABS: PARTIAL THROMBOPLASTIN TIME 26.5 SEC (26.3-35.5)
[2021-03-09 15:56] LABS: POTASSIUM 4.2 mmol/L (3.5-5.1)
[2021-03-09 16:01] LABS: ALBUMIN 3.6 g/dL (3.5-5.0); BILIRUBIN,TOTAL 0.3 mg/dL (0.2-1.0); TOTAL PROTEIN, SERUM 6.8 g/dL (6.0-8.3)
[2021-03-09 16:07] LABS: B-TYPE NATRIURETIC PEPTIDE 43 pg/mL (0-100)
[2021-03-09 16:39] LABS: APPEARANCE,URINE Clear (CLEAR); BILIRUBIN,URINE Negative (NEGATIVE); COLOR,URINE Yellow (YELLOW); GLUCOSE, URINE (UA) Negative (NEGATIVE); KETONES,URINE Negative (NEGATIVE); LEUKOCYTE ESTERASE ,URINE Negative (NEGATIVE); NITRATE,URINE Negative (NEGATIVE); OCCULT BLOOD,URINE Trace (NEGATIVE); PROTEIN,URINE Negative (NEGATIVE); UROBILINOGEN,URINE 0.2 mg/dL (0.2-1.0)
[2021-03-09 16:55] LABS: BACTERIA,URINE Rare /HPF (None Seen); RBC,URINE 0-1 /HPF (0-1); SQUAMOUS EPITHELIAL CELL,UR Rare /HPF (0-2); WBC,URINE 0-1 /HPF (0-1)
[2021-03-09] MEDS ORDERED: ASPIRIN 325MG TAB PO ONE (17:30)
== END 2021-03-09 17:30 | disposition left against medical advice (07) ==
LOC: EDH 13:32
DX: R07.89 Other chest pain (principal); Z53.21 Procedure and treatment not carried out due to patient leaving prior to being seen by health care provider
CPT/HCPCS: 36415; 71045; 80053; 81001; 83880; 84484; 85025; 85610; 85730; 93005

== ENCOUNTER → 2021-03-13 | Outpatient (CLI) | payer OTHER | END | disposition home or self-care (01) | LOC: RAH 07:48 | PROVIDERS: ATTEND Family Medicine | DX: Z12.31 Encounter for screening mammogram for malignant neoplasm of breast (principal) | CPT/HCPCS: 77067 ==